=== PATIENT | female | born 1970 | race Caucasian/White ===

== ENCOUNTER → 2020-08-19 15:21 | Outpatient (CLI) | payer OTHER, SELFPAY ==
[2020-08-19] MEDS: COVID-19 VACC, Ad26(JANSSEN)/PF 0.5 ML IM (15:28)
== END ==
PROVIDERS: Visit Provider Internal Medicine
DX: Z23 Encounter for immunization (principal)
CPT/HCPCS: 0031A; 91303

== ENCOUNTER 2024-02-12 16:58 | Emergency (ER) | payer OTHER, SELFPAY ==
[2024-02-12 17:02] VITALS: BP 155/78; PULSE 106; RESP 16; TEMP 36.4; O2SAT 99; BMI 29.9
--- NOTE | 2024-02-12 17:05 | DI.RAD.S_ITS ---
PROCEDURE: XR FINGER LT MIN 2V INDICATIONS: hit with mallet TECHNIQUE: AP hand, 2 views of the 2nd finger(s) acquired. COMPARISON: None. FINDINGS: Bones: No fractures or dislocations. Joint spaces are maintained. No suspicious bony lesions. Soft tissues: No suspicious soft tissue calcifications. IMPRESSION: No acute bony abnormality. If clinical symptoms persist, consider repeat radiograph in 10-14 days versus cross-sectional imaging. Dictated by: Shane Valiente M.D. on 02/12/2024 at 17:33 Approved by: Shane Valiente M.D. on 02/12/2024 at 17:33
--- NOTE | 2024-02-12 18:42 | ED.UPPEXIN ---
HPI - Extremity Injury (Upper) <ADAMS Reyes Last Filed: 02/12/24 18:48> General Chief Complaint: Extremity Injury, Upper Stated Complaint: finger injury Time Seen by Provider: 02/12/24 17:19 Source: patient Mode of arrival: Ambulatory History of Present Illness HPI narrative: This is a 53-year-old female presents emergency department due to a left 2nd digit injury. She was using a mallet where she hit the tip of the left 2nd digit. Denies any numbness. No breaks in the skin no bleeding. Related Data Allergies Allergy/AdvReac Type Severity Reaction Status Date / Time No Known Drug Allergies Allergy Verified 02/12/24 17:04 Review of Systems <ADAMS Reyes Last Filed: 02/12/24 18:48> Review of Systems Narrative: GENERAL: Denies chills, fatigue, malaise, fever, sweats. HEENT: Denies sinus pain, ear pain, sore throat, difficulty swallowing, dizziness. RESPIRATORY: Denies dyspnea, cough, wheezing, hemoptysis, sputum. CARDIOVASCULAR: Denies chest pain, palpitations, orthopnea, edema, GASTROINTESTINAL: Denies nausea, vomiting, abdominal pain, diarrhea, constipation, melena. : Denies dysuria, frequency, incontinence, hematuria, urinary retention. MUSCULOSKELETAL: Reports left 2nd digit pain SKIN: Denies rash, skin lesions, or other NEUROLOGIC: Denies weakness, headache, numbness, change in speech, confusion, seizures, incoordination. PSYCHIATRIC: No concerning psychosocial issues. 12 point review of systems is negative except for those stated above Patient History <ADAMS Reyes Last Filed: 02/12/24 18:48> Social History Smoking Status: Never smoker Smoking Status: Never smoker Substance Use Type: does not use Exam <ADAMS Reyes Last Filed: 02/12/24 18:48> Narrative Exam Narrative: GENERAL: Well-developed patient, in mild distress. HEAD: Atraumatic. Normocephalic. EYES: Pupils equal round and reactive. Extraocular motions intact. No scleral icterus. No injection or drainage. ENT: Nose without bleeding, purulent drainage. Throat without erythema, tonsillar hypertrophy or exudate. Airway patent. NECK: Trachea midline. Non tender EXTREMITIES: Mild edema and ecchymosis to the distal aspect of the left 2nd digit. No subungual hematoma. No breaks in the skin. Some tenderness to palpation. Full flexion-extension of the DIP NEURO: AOx3. SKIN: No rash or erythema of visible areas Initial Vital Signs Initial Vital Signs: Vital Signs Temperature 97.6 F 02/12/24 17:02 Pulse Rate 106 H 02/12/24 17:02 Respiratory Rate 16 02/12/24 17:02 Blood Pressure 155/78 H 02/12/24 17:02 Pulse Oximetry 99 02/12/24 17:02 Oxygen Delivery Method Room Air 02/12/24 17:02 <Christine Gonzales DO - Last Filed: 02/13/24 07:36> Initial Vital Signs Initial Vital Signs: Vital Signs Temperature 97.6 F 02/12/24 17:02 Pulse Rate 106 H 02/12/24 17:02 Respiratory Rate 16 02/12/24 17:02 Blood Pressure 155/78 H 02/12/24 17:02 Pulse Oximetry 99 02/12/24 17:02 Oxygen Delivery Method Room Air 02/12/24 17:02 Course <Lisandro Schmitt PA-C - Last Filed: 02/12/24 18:48> Orders Ordered: ED Orders 02/12/24 17:05 XR finger LT min 2V Stat Vital Signs Vital signs: Vital Signs - 8 hr 02/12/24 17:02 Temperature 97.6 F Pulse Rate 106 H Respiratory Rate 16 Blood Pressure 155/78 H Pulse Oximetry 99 Oxygen Delivery Method Room Air <DO William Villegas Last Filed: 02/13/24 07:36> Orders Ordered: ED Orders 02/12/24 17:05 XR finger LT min 2V Stat Vital Signs Vital signs: Vital Signs - 8 hr 02/12/24 17:02 Temperature 97.6 F Pulse Rate 106 H Respiratory Rate 16 Blood Pressure 155/78 H Pulse Oximetry 99 Oxygen Delivery Method Room Air MDM - Extremity Injury (Upper) <ADAMS Reyes Last Filed: 02/12/24 18:48> Imaging Data Extremity x-ray #1: Radiologist's Impression: [address] [address] XRay Report Signed Patient: Nata Love MR#: [id number] : 1970 Acct:[id number] Age/Sex: 53 / F Date of Service: 02/12/24 Loc: ED Accession Number: [id number] Procedure: XR finger LT min 2V Ordering Provider: Christine Gonzales D.O. PROCEDURE: XR FINGER LT MIN 2V INDICATIONS: hit with mallet TECHNIQUE: AP hand, 2 views of the 2nd finger(s) acquired. COMPARISON: None. FINDINGS: Bones: No fractures or dislocations. Joint spaces are maintained. No suspicious bony lesions. Soft tissues: No suspicious soft tissue calcifications. IMPRESSION: No acute bony abnormality. If clinical symptoms persist, consider repeat radiograph in 10-14 days versus cross-sectional imaging. Dictated by: Shane Valiente M.D. on 02/12/2024 at 17:33 Approved by: Shane Valiente M.D. on 02/12/2024 at 17:33 [facility] Narrative Medical decision making narrative: ED course: This is a 53-year-old female presents emergency department due to a hammer injuries of the left 2nd digit. There was no subungual hematoma. X-ray negative. Recommended supportive care. CC: Left 2nd digit pain Complicating co-morbidities: None Data collected from: Previous notes Medical records reviewed: Patient was no records to review Differential considered, but not limited to: Fracture, subungual hematoma, soft tissue injury Exam documented above, pertinent findings include: Neurovascularly intact throughout Lab Test results independently reviewed as above. Pertinent findings: None obtained Imaging studies independently reviewed: X-ray negative Scores Used: None MIPS Elements: None Consultations: None Treatments: Finger splint and patient request Re-evaluations: No Discussion: Discussed plan with the patient was comfortable with the plan Diagnosis: Soft tissue injury Disposition: see below, along with detailed discharge instructions that have been reviewed with patient as well as indications for ED re-evaluation and additional outpatient follow up Discharge Plan Departure Patient Disposition: Home Clinical Impression: Contusion of finger Activity Restrictions/Additional Instructions: Thank you for coming to the [facility] Emergency Department today. As we discussed the x-rays were negative for any fractures or bony abnormalities. Please use ibuprofen, ice as needed for the pain. Please return to the emergency department if you develop any severe pain, bness or any other concerning signs or symptoms. I hope you feel better soon. Please follow up with your primary care provider within a week if your symptoms continue. If you do not have a primary care provider please contact the [facility] Resource line at [phone]. They will ask some questions about your medical history and help you get set up with a provider in the community. Referrals: Miscellaneous,Doctor, [Primary Care Provider] - Stand Alone Forms: Patient Portal/API ED Sign-out <Christine Gonzales DO - Last Filed: 02/13/24 07:36> Cosign ED Attending Tyree Attestation: I was immediately available in the department for consultation.
[2024-02-12 18:50] VITALS: BP 112/68; PULSE 72; RESP 16; O2SAT 100
== END 2024-02-12 18:58 | disposition home or self-care (01) ==
PROVIDERS: Emergency Provider Physician Assistant Medical
DX: S60.022A Contusion of left index finger without damage to nail, initial encounter (principal); W22.8XXA Striking against or struck by other objects, initial encounter
CPT/HCPCS: 73140; 99281; 99283